=== PATIENT | male | born 1985 | race African-American/Black ===

== ENCOUNTER → 2024-04-12 10:09 | Outpatient (BNVA) | payer OTHER, SELFPAY | PROVIDERS: Visit Provider Physician Assistant Medical | DX: S39.012A Strain of muscle, fascia and tendon of lower back, initial encounter (principal); S30.811A Abrasion of abdominal wall, initial encounter; S80.02XA Contusion of left knee, initial encounter; S80.01XA Contusion of right knee, initial encounter; W50.1XXA Accidental kick by another person, initial encounter; W50.4XXA Accidental scratch by another person, initial encounter | CPT/HCPCS: 99203 ==

== ENCOUNTER → 2024-04-14 09:23 | Outpatient (BNVA) | payer OTHER, SELFPAY | PROVIDERS: Visit Provider Physician Assistant Medical | DX: S39.012A Strain of muscle, fascia and tendon of lower back, initial encounter (principal); S30.811A Abrasion of abdominal wall, initial encounter; S80.212A Abrasion, left knee, initial encounter; S80.211A Abrasion, right knee, initial encounter; W50.1XXD Accidental kick by another person, subsequent encounter; W50.4 Accidental scratch by another person | CPT/HCPCS: 99213 ==

== ENCOUNTER → 2024-04-29 12:56 | Outpatient (BNVA) | payer OTHER, SELFPAY | PROVIDERS: Visit Provider Physician Assistant Medical | DX: S39.012A Strain of muscle, fascia and tendon of lower back, initial encounter (principal); W50.1XXA Accidental kick by another person, initial encounter | CPT/HCPCS: 72100; 99214 ==

== ENCOUNTER → 2024-07-19 14:00 | Outpatient (BNVA) | payer OTHER, SELFPAY | PROVIDERS: Visit Provider Physician Assistant Medical | DX: M54.16 Radiculopathy, lumbar region (principal) | CPT/HCPCS: 99203 ==

== ENCOUNTER → 2024-07-22 15:01 | Outpatient (BNVA) | payer OTHER, SELFPAY | PROVIDERS: Visit Provider Physician Assistant Medical | DX: M54.16 Radiculopathy, lumbar region (principal); Z02.79 Encounter for issue of other medical certificate | CPT/HCPCS: 99213 ==

== ENCOUNTER → 2024-08-08 13:19 | Outpatient (BNVA) | payer OTHER, SELFPAY | PROVIDERS: Visit Provider Physician Assistant Medical | DX: M54.16 Radiculopathy, lumbar region (principal) | CPT/HCPCS: 99213 ==

== ENCOUNTER 2024-08-16 16:56 | Outpatient (REF) | payer OTHER, SELFPAY ==
--- NOTE | ~2024-08-16 | MR_ITS ---
EXAMINATION: MR LUMBAR SPINE WITHOUT CONTRAST CLINICAL INFORMATION: Lumbar radiculopathy COMPARISON: Lumbar spine x-ray on 04/21/2024 TECHNIQUE: MRI of the lumbar spine was obtained using routine sequences without contrast. FINDINGS: The visualized lumbar vertebrae are intact with normal alignment. No focal bone lesion with abnormal signal can be seen. Evaluation of the intervertebral discs show: T12/L1: Intervertebral disc height is normal, with normal T2 signal. No focal disc herniation is seen. Bilateral T12/L1 neuroforamina are patent. Bilateral apophyseal joints are intact with normal alignment. L-1/L-2: Intervertebral disc height is normal, with normal T2 signal. No focal disc herniation is seen. Bilateral L1-L2 neuroforamina are patent. Bilateral apophyseal joints are intact with normal alignment. L2/L3: Intervertebral disc height is normal, with normal T2 signal. No focal disc herniation is seen. Bilateral L2-L3 neuroforamina are patent. Bilateral apophyseal joints are intact with normal alignment. L3/L4: Intervertebral disc height is mildly decreased, with mild loss of T2 signal. Left posterior annulus tear with Moderate asymmetric left posterior T2 hyperintense nucleus pulposis protrusion is seen partially effacing the left lateral recess and lower portion of left L3-L4 neural foramen is seen. There is resulting marked asymmetric left L3-L4 neural foraminal stenosis. Bilateral apophyseal joints are intact with normal alignment. L4/L5: Intervertebral disc height is mildly decreased, with mild loss of T2 signal. Left posterior annulus tear with mild asymmetric left posterior T2 hyperintense nucleus pulposis protrusion is seen partially effacing the left lateral recess and lower portion of left L3-L4 neural foramen is seen. There is marked asymmetric left L4-L5 neural foraminal stenosis. A left anterior lateral extruded disc fragment is seen along the left posterior border of L4 measuring 0.6 cm in AP diameter, 1.1 cm in width, 1.3 cm in vertical height, completely effacing the left lateral recess. Bilateral apophyseal joints are intact with normal alignment. L5/S1: Intervertebral disc height is normal, with normal T2 signal. No focal disc herniation is seen. Bilateral L5-S1 neuroforamina are patent. Bilateral apophyseal joints are intact with normal alignment. Conus medullaris is seen normally at L1-L2 junction level. MR/MR lumbar spine wo con IMPRESSION: 1. Left posterior annulus tear with moderate asymmetric left posterior nucleus pulposis protrusion at L3-L4 partially effacing the left lateral recess and lower portion of left L3-L4 neural foramen. There is resulting marked asymmetric left L3-L4 neural foraminal stenosis. 2. Left posterior annulus tear with mild asymmetric left posterior nucleus pulposis protrusion at L4-L5 partially effacing the left lateral recess and lower portion of left L4-L5 neural foramen. There is marked asymmetric left L4-L5 neural foraminal stenosis. 3. A left anterior lateral extruded disc fragment is seen along the left posterior border of L4 measuring 0.6 cm in AP diameter, 1.1 cm in width, 1.3 cm in vertical height, completely effacing the left lateral recess. Electronically signed by: Jimmie Villafuerte MD 09/01/2024 01:36 PM EDT
== END 2024-08-16 16:57 | disposition home or self-care (01) ==
LOC: HO.MRI 16:56
PROVIDERS: Visit Provider Internal Medicine
DX: M54.16 Radiculopathy, lumbar region (principal)
CPT/HCPCS: 72148

== ENCOUNTER → 2024-09-05 09:59 | Outpatient (BNVA) | payer OTHER, SELFPAY | PROVIDERS: Visit Provider Physician Assistant Medical | DX: S39.012D Strain of muscle, fascia and tendon of lower back, subsequent encounter (principal); X58.XXXD Exposure to other specified factors, subsequent encounter; M54.16 Radiculopathy, lumbar region | CPT/HCPCS: 99213 ==

== ENCOUNTER → 2024-10-06 09:57 | Outpatient (BNVA) | payer OTHER, SELFPAY | PROVIDERS: Visit Provider Physician Assistant Medical | DX: S39.012D Strain of muscle, fascia and tendon of lower back, subsequent encounter (principal); X58.XXXD Exposure to other specified factors, subsequent encounter; M51.16 Intervertebral disc disorders with radiculopathy, lumbar region | CPT/HCPCS: 99213 ==

== ENCOUNTER → 2024-11-08 15:16 | Outpatient (BNVA) | payer OTHER, SELFPAY | PROVIDERS: Visit Provider Physician Assistant Medical | DX: S39.012D Strain of muscle, fascia and tendon of lower back, subsequent encounter (principal); X58.XXXD Exposure to other specified factors, subsequent encounter; M51.369 Other intervertebral disc degeneration, lumbar region without mention of lumbar back pain or lower extremity pain | CPT/HCPCS: 99213 ==

== ENCOUNTER → 2024-12-13 09:58 | Outpatient (BNVA) | payer OTHER, SELFPAY | PROVIDERS: Visit Provider Physician Assistant Medical | DX: S39.012D Strain of muscle, fascia and tendon of lower back, subsequent encounter (principal); X58.XXXD Exposure to other specified factors, subsequent encounter; M51.369 Other intervertebral disc degeneration, lumbar region without mention of lumbar back pain or lower extremity pain | CPT/HCPCS: 99213 ==

== ENCOUNTER 2025-01-24 15:00 | Outpatient (RCR) | payer OTHER, SELFPAY ==
--- NOTE | 2024-12-27 14:56 | MHC.PT.EP ---
[facility] [place] [facility] [place] [facility] [place] Office [address] Cheyenne Bishop [address] [phone] F: [phone] F: [phone] F: [phone] F: [phone] Physical Therapy Plan of Care Date of Evaluation: 12/27/24 Date of Surgery: Diagnosis: lumbar discopathies Assessment: Patient is a 39 year old R handed male who presents with s/s consistent with lumbar discopathies, low back pain. He works with daily job demands including behavioral health. Patient past medical history is unremarkable. He has seen chiropractors and has received an injection recently. Current impairments include pain, posture, ROM, strength, activity tolerance and functional mobility. Functional limitations include decreased ability to sit, stand, bend, lift, exercise and be active. Patient is motivated with good rehab potential. Skilled PT will address impairments and functional limitations in order to achieve goals. Frequency and Duration: The patient will be seen 2x/week for 5 weeks Short Term Goals: I with HEP -2 weeks centralized s/s - 3 weeks Able to sit 30 min without increased s/s. - 3 weeks Usp Goals: Oswestry 4% or better - 5 weeks Symmetrical gait - 5 weeks Able to exercise unrestricted at gym - 5 weeks 90/90 lacking < 30 b/l - 5 weeks restore PLOF pain free - 5 weeks Treatment Plan: Modalities to reduce pain, spasms and effusion. Manual therapy to restore motion and function. Therapeutic exercise to improve strength and flexibility. Neuromuscular re-education for posture and balance. Therapeutic activities to return to functional activities of daily living. Electronically signed by: Kodi Johnston, PT Please sign and return to therapist. Thank you for your referral.
--- NOTE | 2025-05-12 06:39 | MHC.PT.DC ---
[facility] [place] Office [place] Office [place] Office [address] Cheyenne Bishop [address] [phone] F: [phone] F: [phone] F: [phone] F: [phone] Physical Therapy Discharge Report Diagnosis: lumbar discopathies Date of Surgery: Date of Evaluation: 12/27/24 Date of Discharge: Treatments to Date: 8 Cancellations to Date: No Shows to Date: Discharge Status: Independent with HEP Discharge Summary: 01/24; Pt I with exs and knows proper body mechanics and posture. Pt is seeing surgeon and is DC from PT. 01/19/25: pt progressing slowly. reduced tissue tension and frequency with which distal s/s occur. neuro appt in 1 week. 01/17; Pt RX modified due to MD appt. Pt conts with L L.E sxs. Pt has 2 remaining visits.01/11; Pt L L.E sxs remain the same. Pt has good range with extension. Pt may benefit from trial [place] NV. 01/10; Pt gets relief from extension. Pt QL's and PVM's are less dense.01/05; Pt performed exs with no c/o pain. Pt PVM's and QL's are tight. Pt felt relief after RX. 01/03; Pt has tightness L>R L/S muscles. Pt sore after exs. Progress exs as francisca. Patient is a 39 year old R handed male who presents with s/s consistent with lumbar discopathies, low back pain. He works with daily job demands including behavioral health. Patient past medical history is unremarkable. He has seen chiropractors and has received an injection recently. Current impairments include pain, posture, ROM, strength, activity tolerance and functional mobility. Functional limitations include decreased ability to sit, stand, bend, lift, exercise and be active. Patient is motivated with good rehab potential. Skilled PT will address impairments and functional limitations in order to achieve goals. Electronically signed by: Kodi Johnston, PT Please sign and return to therapist. Thank you for your referral.
== END 2025-05-12 06:40 | disposition home or self-care (01) ==
LOC: HO.PTCHIC 15:00
PROVIDERS: PCP Internal Medicine; Visit Provider Physician Assistant Medical
DX: M51.16 Intervertebral disc disorders with radiculopathy, lumbar region (principal)
CPT/HCPCS: 97014; 97110; 97112; 97140; 97161

== ENCOUNTER → 2025-01-31 15:14 | Outpatient (BNVA) | payer OTHER, SELFPAY | PROVIDERS: PCP Internal Medicine; Visit Provider Physician Assistant Medical | DX: S39.012D Strain of muscle, fascia and tendon of lower back, subsequent encounter (principal); X58.XXXD Exposure to other specified factors, subsequent encounter; M51.16 Intervertebral disc disorders with radiculopathy, lumbar region; Z02.79 Encounter for issue of other medical certificate | CPT/HCPCS: 99213 ==

== ENCOUNTER → 2025-04-06 14:57 | Outpatient (BNVA) | payer OTHER, SELFPAY | PROVIDERS: PCP Internal Medicine; Visit Provider Physician Assistant Medical | DX: S39.012D Strain of muscle, fascia and tendon of lower back, subsequent encounter (principal); X58.XXXD Exposure to other specified factors, subsequent encounter; M51.16 Intervertebral disc disorders with radiculopathy, lumbar region; Z02.79 Encounter for issue of other medical certificate | CPT/HCPCS: 99213 ==